=== PATIENT | male | born 1975 | race Hispanic/Latino ===

== ENCOUNTER 2024-09-19 02:09 | Inpatient (IN) | payer BC ==
[2024-09-19] MEDS ORDERED: Nitroglycerin 2% Ointment 1 INCH/1 GM Packet ONE (02:31)
[2024-09-19] MEDS ORDERED: Nitroglycerin 0.4 MG TAB 1 EACH ONE (02:31)
[2024-09-19] MEDS ORDERED: Ondansetron PF 4 MG/2 ML Vial IVP PRN (04:05)
[2024-09-19] MEDS ORDERED: Senokot S 8.6-50 MG TAB PO PRN (04:05)
[2024-09-19] MEDS ORDERED: Glucagon 1 MG/ML KIT IM PRN (04:08)
[2024-09-19] MEDS ORDERED: Dextrose 5% in Water 1,000 ML IV PRN (04:08)
[2024-09-19] MEDS ORDERED: Insulin Lispro 100 UNIT/ML 10 ML VIAL SC PRN (04:08)
[2024-09-19] MEDS ORDERED: Dextrose 50% Abboject 50 ML SYRINGE SLOW IVP PRN (04:08)
[2024-09-19 05:14] VITALS: BMI 31.0
[2024-09-19] MEDS: Lactated Ringer's 1,000 ML IV SCH (05:16)
[2024-09-19] MEDS: Metoprolol Tartrate 25 MG TAB PO SCH ×2 (05:17→20:31)
[2024-09-19 08:01] LABS: Cardiac Risk 4.5 (Less than 4.5)
[2024-09-19 08:06] LABS: Troponin I 0.994 ng/mL (< 0.028)
[2024-09-19] MEDS: Famotidine/PF 20 mg/2ml Vial SLOW IVP SCH (09:12)
[2024-09-19] MEDS: Aspirin 81 mg Enteric Coated Tablet PO SCH (09:12)
[2024-09-19 09:16] LABS: Anion Gap 13 mmol/L (10-20); BUN (Urea Nitrogen) 13 mg/dL (8.9-20.6); Calc. Creatinine Clearance 162 mL/min (70-130); Calcium 8.8 mg/dL (7.8-10.44); Carbon Dioxide 18 mmol/L (22-29); Chloride 109 mmol/L (98-107); Estimated GFR 109; Glucose 148 mg/dL (70-105); Potassium 4.1 mmol/L (3.5-5.1); Sodium 136 mmol/L (136-145)
[2024-09-19 09:56] LABS: Critical Call Chem Troponin I RESULT DECREASING; Troponin I 0.814 ng/mL (< 0.028)
[2024-09-19 09:57] LABS: #Basophils 0.04 10x3/uL (0.0-0.2); %Basophils 0.4 % (0.0-1.0); %Eosinophils 2.3 % (0.0-10.0); %Monocytes 6.7 % (0.0-10.0); %Neutrophils 55.3 % (42.0-75.0); Hematocrit 47.5 % (42.0-52.0); Hemoglobin 16.6 g/dL (14.0-18.0); Mean Corpuscular HGB CONC 34.9 g/dL (32.0-36.0); Mean Corpuscular Hemoglobin 31.4 pg (27.0-31.0); Mean Platelet Volume 9.5 fL (7.4-10.4); Platelet Count 294 10x3/uL (130-400); RBC Distribution Width 12.2 % (11.5-14.5); Red Blood Cell (RBC) Count 5.28 mill/uL (4.70-6.10)
[2024-09-19] MEDS ORDERED: Midazolam HCl 2 mg/2 ml Vial ONE (11:40)
[2024-09-19] MEDS ORDERED: fentaNYL 50 mcg/mL 1 mL Vial ONE (11:40)
[2024-09-19] MEDS ORDERED: Verapamil 5 MG/2 ML VIAL ONE (11:40)
[2024-09-19] MEDS ORDERED: Nitroglycerin 50 MG/250 ML BOT 250 ML ONE (11:41)
[2024-09-19] MEDS ORDERED: Heparin 10,000 UNITS/ 10 ML VIAL ONE ×2 (11:41→13:41)
[2024-09-19] MEDS: Acetaminophen 325 MG TAB PO PRN (12:26)
[2024-09-19] MEDS ORDERED: CATH FS PRN (13:00)
[2024-09-19] MEDS ORDERED: TICAGRELOR 90 MG TABLET ONE (13:33)
[2024-09-19] MEDS ORDERED: Tirofiban-0.9% Sodium Chloride 250 ML ONE (13:56)
[2024-09-19] MEDS ORDERED: Tirofiban-0.9% Sodium Chloride 250 ML IVPB SCH (14:15)
[2024-09-19] MEDS ORDERED: Iopamidol 370 76% 100 ML VIAL ONE (14:43)
[2024-09-19] MEDS: Morphine 2 MG/ML VIAL SLOW IVP PRN (16:20)
[2024-09-19] MEDS: Calcium Carbonate 500 MG ChewTAB PO PRN (17:00)
[2024-09-19] MEDS: Nitroglycerin 0.4 MG TAB (25 Tab Bottle) SL PRN (17:02)
[2024-09-19] MEDS: Atorvastatin Calcium 40 MG TAB PO SCH (20:31)
[2024-09-19] MEDS ORDERED: Atorvastatin Calcium 20 MG TAB PO SCH (21:00)
[2024-09-19] MEDS: TICAGRELOR 90 MG TABLET PO SCH (21:56)
[2024-09-20 04:44] LABS: #Basophils 0.03 10x3/uL (0.0-0.2); %Basophils 0.3 % (0.0-1.0); %Eosinophils 1.6 % (0.0-10.0); %Lymphocytes 23.7 % (21.0-51.0); %Monocytes 7.8 % (0.0-10.0); %Neutrophils 66.2 % (42.0-75.0); Hematocrit 46.3 % (42.0-52.0); Hemoglobin 15.9 g/dL (14.0-18.0); Mean Corpuscular HGB CONC 34.3 g/dL (32.0-36.0); Mean Corpuscular Hemoglobin 31.1 pg (27.0-31.0); Mean Corpuscular Volume 90.6 fL (78.0-98.0); Mean Platelet Volume 9.1 fL (7.4-10.4); Platelet Count 261 10x3/uL (130-400); RBC Distribution Width 12.2 % (11.5-14.5); Red Blood Cell (RBC) Count 5.11 mill/uL (4.70-6.10)
[2024-09-20 05:12] LABS: ALT (SGPT) 43 U/L (8-55); AST (SGOT) 27 U/L (5-34); Albumin 3.5 g/dL (3.5-5.0); Alkaline Phosphatase 68 U/L (40-110); Anion Gap 12 mmol/L (10-20); BUN (Urea Nitrogen) 10 mg/dL (8.9-20.6); Bilirubin, Total 0.7 mg/dL (0.2-1.2); Calc. Creatinine Clearance 158 mL/min (70-130); Calcium 8.7 mg/dL (7.8-10.44); Carbon Dioxide 24 mmol/L (22-29); Chloride 105 mmol/L (98-107); Estimated GFR 108; Globulin 3.1 g/dL (2.4-3.5); Glucose 155 mg/dL (70-105); Potassium 3.9 mmol/L (3.5-5.1); Protein, Total 6.6 g/dL (6.0-8.3); Sodium 137 mmol/L (136-145)
[2024-09-20] MEDS ORDERED: Insulin Lispro 100 UNIT/ML 10 ML VIAL SC PRN (05:57)
[2024-09-20] MEDS: Insulin Lispro 100 UNIT/ML 10 ML VIAL SC PRN (06:29)
[2024-09-20] MEDS: Aspirin Chewable 81 MG TAB PO SCH (10:20)
[2024-09-20 15:23] VITALS: BP 150/86; TEMP 98.8
[2024-09-21] MEDS ORDERED: Lisinopril 2.5 MG TAB PO SCH (09:00)
[2024-09-22] MEDS ORDERED: FLU (Fluarix Triv) TS24-25(6MOS UP)/PF 45 MCG/0.5 ML Syringe IM ONE (09:00)
== END 2024-09-20 16:56 | disposition home or self-care (01) | DRG 322 ==
LOC: ERS 02:09 → 2NO 03:56 → OBSVTOIN 04:04
PROVIDERS: ADMIT Student in an Organized Health Care Education/Training Program; ATTEND Internal Medicine
PROC: 027034Z Dilation of Coronary Artery, One Artery with Drug-eluting Intraluminal Device, Percutaneous Approach (ICD-10-PCS; principal; 2024-09-19)
PROC: 4A023N7 Measurement of Cardiac Sampling and Pressure, Left Heart, Percutaneous Approach (ICD-10-PCS; 2024-09-19)
PROC: B2151ZZ Fluoroscopy of Left Heart using Low Osmolar Contrast (ICD-10-PCS; 2024-09-19)
PROC: B2111ZZ Fluoroscopy of Multiple Coronary Arteries using Low Osmolar Contrast (ICD-10-PCS; 2024-09-19)
DX: I21.4 Non-ST elevation (NSTEMI) myocardial infarction (principal); I24.9 Acute ischemic heart disease, unspecified; F17.210 Nicotine dependence, cigarettes, uncomplicated; R73.9 Hyperglycemia, unspecified; I25.5 Ischemic cardiomyopathy; E78.5 Hyperlipidemia, unspecified
CPT/HCPCS: 36415; 36416; 80053; 80061; 83036; 85025; 85347; 92928; 93005; 93010; 93306; 93458; 93798; 94760; 99152; 99153; 99285; C1725; C1769; C1874; C1887; C1894; C9600; J1644; J1815; J2250; J2272; J3010; J3246; J3490; J7120; Q9967